=== PATIENT | female | born 1980 | race African-American/Black ===

== ENCOUNTER 2023-10-14 08:28 | Outpatient (CLI) | payer BC, SELFPAY ==
--- NOTE | ~2023-10-14 | US_ITS ---
EXAMINATION: US OB <=14 wk fetus w TV DATE: 10/14/2023 09:31 INDICATION: Amenorrhea TECHNIQUE: Real-time pelvic ultrasound utilizing both a transvaginal and transabdominal probe was pe rformed. The interpreting radiologist was not present for the study. COMPARISON: None. FINDINGS: The uterus measures 13.6 x 5.9 x 8.1 cm. There is an intrauterine gestational sac.There is a curvili near internal septation within the gestational sac consistent with an enlarged yolk sac measuring bridgett roximately 1.3 cm in diameter. No evident pole. The mean sac diameter measures 1.8 cm, which co rrelates with an estimated gestational age of 6 weeks and 5 days. The right ovary measures 3.7 x 2.0 x 2.1 cm. The left ovary measures 2.5 x 2.0 x 2.3 cm. Vascular fredy w with arterial waveforms identified at both ovaries on color Doppler. There is a minimal amount of a nechoic free fluid in the pelvis. IMPRESSION: 1. Single intrauterine gestational sac with mean sac diameter of 1.8 cm with 1.3 cm intramural yolk s ac but without a pole which is suspicious but not diagnostic for failure. Recommend f ollow-up with serial beta-hCG levels and repeat imaging as clinically indicated. 2. Gestational age by ultrasound based on mean sac diameter of 6 weeks 5 day(s) +/- 4 day(s) with ul trasound estimated date of delivery (YARI) of 06/03/2024. Reviewed, dictated and finalized at location A. IMPRESSION: 1. Single intrauterine gestational sac with mean sac diameter of 1.8 cm with 1. 3 cm intramural yolk sac but without a pole which is suspicious but not d iagnostic for failure. Recommend follow-up with serial beta-hCG level s and repeat imaging as clinically indicated. 2. Gestational age by ultrasound based on mean sac diameter of 6 weeks 5 day(s ) +/- 4 day(s) with ultrasound estimated date of delivery (YARI) of 06/03/2024.
== END 2023-10-14 08:29 | disposition home or self-care (01) ==
LOC: ANHIMG 08:31
PROVIDERS: PCP Family Medicine; Visit Provider Nurse Practitioner Obstetrics & Gynecology
DX: N91.2 Amenorrhea, unspecified (principal); Z3A.01 Less than 8 weeks gestation of pregnancy
CPT/HCPCS: 76801; 76817

== ENCOUNTER 2023-10-15 07:50 | Outpatient (CLI) | payer BC, SELFPAY ==
[2023-10-17 18:23] LABS: Progesterone 5.3 ng/mL
== END 2023-10-15 07:51 | disposition home or self-care (01) ==
LOC: ANHLAB 07:51
PROVIDERS: PCP Family Medicine; Visit Provider Nurse Practitioner Obstetrics & Gynecology
DX: N91.2 Amenorrhea, unspecified (principal)
CPT/HCPCS: 36415; 84144; 84702

== ENCOUNTER 2023-10-17 08:17 | Outpatient (CLI) | payer BC, SELFPAY ==
[2023-10-20 02:44] LABS: Progesterone 4.6 ng/mL
== END 2023-10-17 08:18 | disposition home or self-care (01) ==
LOC: ANHLAB 08:18
PROVIDERS: PCP Family Medicine; Visit Provider Nurse Practitioner Obstetrics & Gynecology
DX: N91.2 Amenorrhea, unspecified (principal)
CPT/HCPCS: 36415; 84144; 84702

== ENCOUNTER 2023-10-26 09:53 | Outpatient (CLI) | payer BC, SELFPAY ==
--- NOTE | ~2023-10-26 | US_ITS ---
Pelvic ultrasound. Clinical History: First trimester , inconclusive viability COMPARISON: 10/14/2023 Technique: Realtime transabdominal and transvaginal scanning of the pelvis was performed. Color flow Doppler and Doppler spectral analysis were performed. Findings: The uterus is retroverted, and contains an intrauterine gestational sac. Average sac diamet er of 2 cm corresponds to an estimated gestational age of 6 weeks 6 days. Sac is mildly irregular mor phology. There is probable minimal debris within the sac, but no pole or yolk sac clearly evide nt. Small subchorionic hemorrhage present. The right ovary measures 3.3 x 1.8 x 3.4 cm. No significant right ovarian or adnexal mass is seen. The left ovary measures 2.5 x 1.8 x 2.6 cm. No significant left ovarian or adnexal mass is seen. There is no evidence of free fluid in the cul de sac. Impression: Intrauterine gestational sac with estimated gestational age of 6 weeks 6 days by average sac diameter , however the sac is mildly irregular, with minimal debris and no well-formed pole or yolk sac. Findings are suspicious for blighted ovum/missed . Small subchorionic hemorrhage. Reviewed, dictated and finalized at location . Impression: Intrauterine gestational sac with estimated gestational age of 6 weeks 6 days b y average sac diameter, however the sac is mildly irregular, with minimal debri s and no well-formed pole or yolk sac. Findings are suspicious for blight ed ovum/missed . Small subchorionic hemorrhage.
== END 2023-10-26 09:54 | disposition home or self-care (01) ==
LOC: ANHIMG 09:55
PROVIDERS: PCP Family Medicine; Visit Provider Obstetrics & Gynecology
DX: O36.80X0 Pregnancy with inconclusive fetal viability, not applicable or unspecified (principal); Z3A.01 Less than 8 weeks gestation of pregnancy
CPT/HCPCS: 36415; 76801; 76817; 84702

== ENCOUNTER 2023-10-26 19:03 | Emergency (ER) | payer BC, SELFPAY ==
[2023-10-26 19:05] VITALS: BP 162/98; PULSE 98; RESP 16; TEMP 36.8; O2SAT 100
--- NOTE | 2023-10-26 20:11 | PC.NURSE ---
States has bleed through the sanitary napkin and onto blue chux pad under her. Additional supplies provided. Charge nurse notified of bleeding.
[2023-10-26 20:50] VITALS: BP 140/101; PULSE 92; RESP 20; O2SAT 100
[2023-10-26 21:45] LABS: Basophils Percent Auto 0.1 % (0.2-1.2); Eosinophils Absolute Auto 0.1 K/mm3 (0-0.3); Eosinophils Percent Auto 1.5 % (0-4.4); Hematocrit 34.5 % (37.0-47.0); Hemoglobin 11.4 g/dL (12.0-15.0); Immature Granulocyte Absolute 0.01 K/mm3 (0.00-0.031); Immature Granulocyte Percent A 0.1 % (0-0.5); Lymphocytes Absolute Auto 2.24 K/mm3 (0.9-3.2); Lymphocytes Percent Auto 27.6 % (18.3-44.2); Mean Corpuscular Hemoglobin 28.7 pg (26-34); Mean Corpuscular Volume 86.9 fl (80-100); Mean Platelet Volume 9.7 fl (7.4-10.4); Monocytes Absolute Auto 0.7 K/mm3 (0.1-0.6); Monocytes Percent Auto 8.6 % (2.6-8.5); Neutrophils Percent Auto 62.1 % (45.5-73.1); Platelet Count Result 197 k/mm3 (150-375); Red Blood Count 3.97 M/mm3 (4.2-5.4); White Blood Count 8.1 K/mm3 (4.5-10.0)
[2023-10-26 22:03] LABS: Alanine Aminotransferase 14 U/L (6-35); Alkaline Phosphatase 63 U/L (38-126); Anion Gap 11 mmol/L (4-12); Aspartate Amino Transferase 22 U/L (14-36); Bilirubin,Total 0.4 mg/dL (0.2-1.3); Blood Urea Nitrogen 8 mg/dL (7-17); Carbon Dioxide 22 mmol/L (22-30); Chloride 104 mmol/L (98-107); Estimated CRCL calculation 128 ml/min; Estimated Glomerular Filt Rate > 60; Glucose 103 mg/dL (65-110); Potassium 3.6 mmol/L (3.4-5.0); Sodium 137 mmol/L (137-145)
[2023-10-26] MEDS: KETOROLAC 15 MG/ML VIAL (*BKC) IV PUSH (22:12)
[2023-10-26] MEDS: HYDROmorphone HCL INJ (*CRX) 1 MG/ML SYR IV PUSH (22:12)
[2023-10-26 22:18] LABS: INR 1.1; Prothrombin Time 14.1 Seconds (11.1-14.7)
[2023-10-26 22:29] LABS: Partial Thromboplastin Time 22.9 Seconds (22.3-36.8)
[2023-10-26 22:31] VITALS: BP 122/92
[2023-10-26 22:46] VITALS: BP 129/78; PULSE 93; RESP 16; O2SAT 98
[2023-10-26 22:56] VITALS: BP 119/85; PULSE 97; RESP 17; O2SAT 99
[2023-10-26 23:01] VITALS: BP 135/80; PULSE 92; RESP 17; O2SAT 96
[2023-10-27 00:04] VITALS: BP 122/93; PULSE 98; RESP 17; TEMP 36.6; O2SAT 96
--- NOTE | 2023-10-27 01:25 | ED.GENADULT ---
HPI - General Adult General Chief complaint: Vaginal Bleeding Stated complaint: heavy vag bleeding s/p miscarriage Time Seen by Provider: 10/26/23 21:31 History of Present Illness HPI narrative: This is a 43-year-old female presenting with vaginal bleeding. Patient had a miscarriage noted on ultrasound on 10/13. The patient has not had vaginal bleeding. She had another ultrasound earlier today which showed that she had still not passed the products of conception. At 2:00 p.m. she started developed vaginal bleeding. She was soaking through more than 1 pad hour for several hours and then came to the ED for evaluation. This time the patient is experiencing crampy abdominal pain. No lightheadedness and headedness dizziness chest pain difficulty breathing. Related Data Home Medications Medication Instructions Recorded Confirmed metoprolol succinate 25 mg 25 mg PO DAILY 02/05/20 09/29/23 tablet,extended release 24 hr hydroxychloroquine 200 mg tablet 200 mg PO DAILY 02/09/21 09/29/23 Allergies Allergy/AdvReac Type Severity Reaction Status Date / Time adhesive tape Allergy Unknown Rash Verified 09/29/23 09:23 [facility] Past Medical History Medical History Hypertension Vaginal delivery x2 Surgical History Surgical History S/P bunionectomy Family History Family History Mother Hypertension Other Family history of malignant neoplasm of breast in first degree relative Social History Social History Smoking status: Never smoker Alcohol intake: current Lack of Transportation: No Lack of Food: Never True Current Housing: I Have Housing Concerned About Future Housing: No Difficulty Paying Gas/Electric Bills: No Difficulty Paying for Meds: No Currently Unemployed: No Education: Associate Degree Difficulty w/ Childcare or Family Care: No Living arrangements: with family Gender identity (if verbalized by the patient): Female Exam Narrative: APPEARANCE: No apparent distress. Head: atraumatic. EYES: EOMI, NOSE: Atraumatic NECK: Trachea midline RESPIRATORY: No increased rate of breathing CARDIOVASCULAR: RRR, ABDOMINAL: Nondistended, mildly tender in the suprapubic area exam: Vaginal bleeding with passage of clots MUSCULOSKELETAl: No obvious deformities NEURO: Alert. Moving 4/4 extremities SKIN:: Warm, dry. Normal color PSYCHIATRIC: Normal affect Course Vital Signs Vital signs: Vital Signs Temperature 98.3 F 10/26/23 19:05 Pulse Rate 98 10/26/23 19:05 Respiratory Rate 16 10/26/23 19:05 Blood Pressure 162/98 H 10/26/23 19:05 Pulse Oximetry 100 10/26/23 19:05 Oxygen Delivery Room Air 10/26/23 19:05 Temperature 97.8 F 10/27/23 00:04 Pulse Rate 80 10/27/23 02:07 Respiratory Rate 17 10/27/23 02:07 Blood Pressure 128/91 H 10/27/23 02:07 Pulse Oximetry 99 10/27/23 02:07 Oxygen Delivery Room Air 10/26/23 19:05 Medical Decision Making MDM Narrative Medical decision making narrative: -Course: 43-year-old female presenting with miscarriage. Patient is having significant vaginal bleeding. Pelvic exam she had products of conception stuck in the cervical os. These were removed using ring forceps and the rest of the clots and blood were evacuated. The cervical os is now closed. Patient was monitored for 4 hours and her bleeding has essentially resolved. Her hemoglobins dropped by 1 point but her vital signs are stable and she is feeling better. Patient be discharged to follow-up with her OBGYN tomorrow morning for further management. -DDX includes but is not limited to: Miscarriage, missed Madan miscarriage, septic miscarriage -Independent interpretation of studies: Labs reviewed Ultrasound reviewed -Discussion of Michael
[2023-10-27] MEDS: ONDANSETRON INJ 4 MG/2 ML VIAL IV PUSH (01:57)
[2023-10-27 02:07] VITALS: BP 128/91; PULSE 80; RESP 17; O2SAT 99
[2023-10-27 02:13] LABS: Hematocrit 32.7 % (37.0-47.0); Hemoglobin 10.5 g/dL (12.0-15.0)
--- NOTE | 2023-10-27 04:07 | PC.NURSE ---
product of conception walked to lab by this rn w demise paperwork.
== END 2023-10-27 04:07 | disposition home or self-care (01) ==
PROVIDERS: Registered Nurse; Emergency Provider Emergency Medicine; PCP Family Medicine
DX: O03.9 Complete or unspecified spontaneous abortion without complication (principal)
CPT/HCPCS: 36415; 76801; 76817; 80053; 84702; 85014; 85018; 85025; 85610; 85730; 88305; 96374; 96375; 99284; J1170; J1885; J2405

== ENCOUNTER 2023-11-01 14:56 | Observation (INO) | payer BC, SELFPAY ==
[2023-11-01] VITALS (10 sets, daily range): BP systolic 129–153; BP diastolic 81–95; PULSE 75–107; RESP 14–18; TEMP 36.3–36.6; O2SAT 98–100
--- NOTE | 2023-11-01 15:39 | ED.FEMALEGU ---
HPI - Female Genitourinary General Chief complaint: Vaginal Bleeding Stated complaint: vaginal bleeding Time Seen by Provider: 11/01/23 15:06 Source: patient and other (Dr Livingston) Limitations: no limitations History of Present Illness HPI Narrative: Patient presents via Dr Livingston's office who calls ahead notifying ED that patient is having a miscarriage and will require a D&C in the OR. Dr Livingston had tried to arrnage outpatient to directly transfer to the OR but was met with logistical difficulties. Requesting IV and CBC. Patient does endorse some pain. Has been having vaginal bleeding. Related Data Home Medications Medication Instructions Recorded Confirmed metoprolol succinate 25 mg 25 mg PO DAILY 02/05/20 11/01/23 tablet,extended release 24 hr hydroxychloroquine 200 mg tablet 200 mg PO DAILY 02/09/21 11/01/23 Allergies Allergy/AdvReac Type Severity Reaction Status Date / Time adhesive tape Allergy Unknown Rash Verified 11/01/23 15:57 PMFSH Past Medical History Medical History Hypertension Vaginal delivery x2 Surgical History Surgical History S/P bunionectomy Family History Family History Mother Hypertension Other Family history of malignant neoplasm of breast in first degree relative Social History Social History Smoking status: Never smoker Alcohol intake: current Substance use: never Other substance usage details: Occasional alcohol Do You Feel Safe in your Home?: Yes Lack of Transportation: No Lack of Food: Never True Current Housing: I Have Housing Concerned About Future Housing: No Difficulty Paying Gas/Electric Bills: No Difficulty Paying for Meds: No Currently Unemployed: No Education: Associate Degree Difficulty w/ Childcare or Family Care: No Living arrangements: with family Gender identity (if verbalized by the patient): Female Spiritual care concerns: No Exam Narrative: GENERAL: Well-appearing, well-nourished, and in no acute distress. HEAD: Normocephalic, atraumatic. EYES: Non injected, non icteric ENT: Nares clear, no rhinorrhea or epistaxis. NECK: Supple. CHEST: Speaking in full sentences. No respiratory distress. HEART: Regular rate and rhythm. . ABDOMEN: Soft, nondistended. EXTREMITIES: Normal range of motion. No lower extremity edema. SKIN: Warm, dry, no rash. NEURO: No focal deficits. Alert and oriented x3. PSYCH: Normal mood and affect. Course Vital Signs Vital signs: Vital Signs Temperature 97.6 F 11/01/23 15:09 Pulse Rate 98 11/01/23 15:09 Respiratory Rate 15 11/01/23 15:09 Blood Pressure 153/92 H 11/01/23 15:09 Pulse Oximetry 100 11/01/23 15:09 Oxygen Delivery Room Air 11/01/23 15:09 Temperature 98.1 F 11/02/23 05:56 Pulse Rate 78 11/02/23 05:56 Respiratory Rate 16 11/02/23 05:56 Blood Pressure 113/60 11/02/23 05:56 Pulse Oximetry 98 11/02/23 05:56 Oxygen Delivery Room Air 11/01/23 20:00 Oxygen Flow Rate 8 11/01/23 16:55 MDM - Female Genitourinary MDM Narrative Medical decision making narrative: Patient presents from Dr Livingston's office. She is having a miscarriage and will require D&C for vaginal bleeding. In the ED she is afebril with VS notable for hypertension. Labs drawn but not yet resulted as she is taken to the OR in stable condition. Patient has a normocytic anemia, down from 10.5 previously on 10/27/23. Lab Data Attestation: I reviewed the patient's lab results. 11/02/23 05:12 11/01/23 15:25 Labs: Lab Results 11/01/23 Range/Units 15:25 WBC 8.0 (4.5-10.0) K/mm3 RBC 2.88 L (4.2-5.4) M/mm3 Hgb 8.2 L (12.0-15.0) g/dL Hct 25.6 L (37.0-47.0) % MCV 88.9 (80-100) fl MCH 28.5 (26-3
[2023-11-01 15:40] LABS: Basophils Percent Auto 0.3 % (0.2-1.2); Eosinophils Absolute Auto 0.1 K/mm3 (0-0.3); Eosinophils Percent Auto 1.4 % (0-4.4); Hematocrit 25.6 % (37.0-47.0); Hemoglobin 8.2 g/dL (12.0-15.0); Immature Granulocyte Absolute 0.03 K/mm3 (0.00-0.031); Immature Granulocyte Percent A 0.4 % (0-0.5); Lymphocytes Absolute Auto 2.43 K/mm3 (0.9-3.2); Lymphocytes Percent Auto 30.5 % (18.3-44.2); Mean Corpuscular Hemoglobin 28.5 pg (26-34); Mean Corpuscular Volume 88.9 fl (80-100); Mean Platelet Volume 9.5 fl (7.4-10.4); Monocytes Absolute Auto 0.6 K/mm3 (0.1-0.6); Monocytes Percent Auto 7.8 % (2.6-8.5); Neutrophils Absolute Auto 4.8 K/mm3 (1.3-6.7); Neutrophils Percent Auto 59.6 % (45.5-73.1); Platelet Count Result 222 k/mm3 (150-375); Red Blood Count 2.88 M/mm3 (4.2-5.4); Red Cell Distribution Width 18.6 % (11.5-14.5)
[2023-11-01 15:43] LABS: Prothrombin Time 13.8 Seconds (11.1-14.7)
[2023-11-01 15:44] LABS: Partial Thromboplastin Time 25.2 Seconds (22.3-36.8)
[2023-11-01 15:48] LABS: Alanine Aminotransferase 17 U/L (6-35); Albumin Level 3.9 g/dL (3.5-5.1); Alkaline Phosphatase 63 U/L (38-126); Anion Gap 9 mmol/L (4-12); Aspartate Amino Transferase 26 U/L (14-36); Bilirubin,Total 0.2 mg/dL (0.2-1.3); Blood Urea Nitrogen 8 mg/dL (7-17); Calcium 8.7 mg/dL (8.4-10.2); Carbon Dioxide 22 mmol/L (22-30); Chloride 104 mmol/L (98-107); Estimated CRCL calculation 111 ml/min; Estimated Glomerular Filt Rate > 60; Glucose 110 mg/dL (65-110); Sodium 135 mmol/L (137-145)
--- NOTE | 2023-11-01 15:51 | WPDANESEPPF ---
Anes - Initial Pre Proc Eval Procedure: Operation Date: 11/01/23 16:00 Proposed Procedures p Suction Dilatation and Curettage - Naveen Simmons MD Date/Time: 11/01/23 15:51 Surgeon: Naveen Simmons MD Pre Op Diagnosis: vaginal bleeding Patient Data Age: 43 Gender: F Height: 1.68 m Weight: 104.7 kg Last Vital Signs Temp 36.4 C 11/01/23 15:09 Pulse 98 11/01/23 15:09 Resp 15 11/01/23 15:09 BP 153/92 H 11/01/23 15:09 Pulse Ox 100 11/01/23 15:09 O2 Del Method Room Air 11/01/23 15:09 Allergies Allergy/AdvReac Type Severity Reaction Status Date / Time adhesive tape Allergy Unknown Rash Verified 11/01/23 14:56 Home Medications Medication Instructions Recorded Confirmed Type metoprolol succinate 25 mg 25 mg PO DAILY 02/05/20 09/29/23 History tablet,extended release 24 hr hydroxychloroquine 200 mg tablet 200 mg PO DAILY 02/09/21 09/29/23 History hydrocodone 5 mg-acetaminophen 325 1 tablet PO Q4H PRN pain #7 tabs 10/27/23 Rx mg tablet misoprostol 200 mcg tablet 200 mcg vaginal .COMPLEX #3 tabs 10/27/23 Rx (Cytotec) ondansetron 4 mg disintegrating 4 mg PO Q6H PRN nausea and 10/27/23 Rx tablet vomiting #4 tabs Laboratory Tests 11/01/23 15:25 WBC 8.0 K/mm3 (4.5-10.0) RBC 2.88 L M/mm3 (4.2-5.4) Hgb 8.2 L g/dL (12.0-15.0) Hct 25.6 L % (37.0-47.0) MCV 88.9 fl (80-100) MCH 28.5 pg (26-34) MCHC 32.0 g/dl (32-36) RDW 18.6 H % (11.5-14.5) Plt Count 222 k/mm3 (150-375) MPV 9.5 fl (7.4-10.4) Immature Gran % (Auto) 0.4 % (0-0.5) Neut % (Auto) 59.6 % (45.5-73.1) Lymph % (Auto) 30.5 % (18.3-44.2) Tompkins % (Auto) 7.8 % (2.6-8.5) Eos % (Auto) 1.4 % (0-4.4) Baso % (Auto) 0.3 % (0.2-1.2) Lymph # (Auto) 2.43 K/mm3 (0.9-3.2) Tompkins # (Auto) 0.6 K/mm3 (0.1-0.6) Eos # (Auto) 0.1 K/mm3 (0-0.3) Baso # (Auto) 0.0 K/mm3 (0.0-0.1) Abs Immat Gran (auto) 0.03 K/mm3 (0.00-0.031) Absolute Neuts (auto) 4.8 K/mm3 (1.3-6.7) Absolute Nucleated RBC 0.000 K/mm3 (0.0-0.012) Nucleated RBC % 0.0 % (0.0-0.2) PT 13.8 Seconds (11.1-14.7) INR 1.0 APTT 25.2 Seconds (22.3-36.8) Sodium 135 L mmol/L (137-145) Potassium 4.0 mmol/L (3.4-5.0) Chloride 104 mmol/L (98-107) Carbon Dioxide 22 mmol/L (22-30) Anion Gap 9 mmol/L (4-12) BUN 8 mg/dL (7-17) Creatinine 0.70 mg/dL (0.7-1.0) Estim Creat Clear Calc 111 ml/min Estimated GFR > 60 (59 - ) Glucose 110 mg/dL (65-110) Calcium 8.7 mg/dL (8.4-10.2) Total Bilirubin 0.2 mg/dL (0.2-1.3) AST 26 U/L (14-36) ALT 17 U/L (6-35) Alkaline Phosphatase 63 U/L (38-126) Total Protein 7.0 g/dL (6.3-8.2) Albumin 3.9 g/dL (3.5-5.1) Patient hx anesthesia problems: post op nausea/vomiting Family hx anesthesia problems: none Results Review: All pre-operative results and documents have been reviewed as part of the pre-operative evaluation. [facility] Past Medical History Medical History Hypertension Vaginal delivery x2 Surgical History Surgical History S/P bunionectomy Family History Family History Mother Hypertension Other Family history of malignant neoplasm of breast in first degree relative Social History Social History Smoking status: Never smoker Alcohol intake: current Lack of Transportation: No Lack of Food: Never True Current Housing: I Have Housing Concerned About Future Housing: No Difficulty Paying Gas/Electric Bills: No Difficulty Paying for Meds: No Currently Unemployed: No Education: Associate Degree Difficulty w/ Childcare or Family Care: No Kanika
[2023-11-01] MEDS: LACTATED RINGERS 1,000 ML 30 ML IV CONT (15:58)
[2023-11-01] MEDS: SCOPOLAMINE 1 MG PATCH 1 PATCH TRANSDERM (16:02)
--- NOTE | 2023-11-01 16:10 | PM.IMHP ---
H&P: HPI History of Present Illness Date/Time: 11/01/23 16:10 Chief Complaint: Bleeding Narrative: Patient with incomplete miscarriage. She took misoprostol this weekend and has had heavy bleeding. In the office tissue at os and heavy bleeding. She was recommended for a dilation and curettage. Review of Systems Review of Systems: All systems reviewed & are unremarkable except as noted in HPI and below Cardiovascular: Cardiovascular: Reports no additional cardiovascular complaints, Denies chest pain and Denies dyspnea Respiratory: Respiratory: Reports no additional respiratory complaints and Denies dyspnea Gastrointestinal: Gastrointestinal: Reports abdominal pain, Denies change in bowel habits, Denies diarrhea, Denies nausea and Denies vomiting Genitourinary: Genitourinary: Reports pelvic pain Musculoskeletal: Musculoskeletal: Reports back pain Integumentary/Breasts: Skin/Breast: Reports system reviewed and no additional complaints, except as docu Neurologic: Reports system reviewed and no additional complaints, except as documented PMF Past Medical History Medical History Hypertension Vaginal delivery x2 Surgical History Surgical History S/P bunionectomy Family History Family History Mother Hypertension Other Family history of malignant neoplasm of breast in first degree relative Social History Social History Smoking status: Never smoker Alcohol intake: current Lack of Transportation: No Lack of Food: Never True Current Housing: I Have Housing Concerned About Future Housing: No Difficulty Paying Gas/Electric Bills: No Difficulty Paying for Meds: No Currently Unemployed: No Education: Associate Degree Difficulty w/ Childcare or Family Care: No Living arrangements: with family Gender identity (if verbalized by the patient): Female Meds Home Medications and Allergies Home Medications Medication Instructions Recorded Confirmed Type metoprolol succinate 25 mg 25 mg PO DAILY 02/05/20 11/01/23 History tablet,extended release 24 hr hydroxychloroquine 200 mg tablet 200 mg PO DAILY 02/09/21 11/01/23 History hydrocodone 5 mg-acetaminophen 325 1 tablet PO Q4H PRN pain #7 tabs 10/27/23 11/01/23 Rx mg tablet misoprostol 200 mcg tablet 200 mcg vaginal .COMPLEX #3 tabs 10/27/23 11/01/23 Rx (Cytotec) ondansetron 4 mg disintegrating 4 mg PO Q6H PRN nausea and 10/27/23 11/01/23 Rx tablet vomiting #4 tabs Allergies Allergy/AdvReac Type Severity Reaction Status Date / Time adhesive tape Allergy Unknown Rash Verified 11/01/23 15:57 Vital Signs Vital Signs - 24 hr 11/01/23 15:09 Temperature 97.6 F Pulse Rate 98 Respiratory Rate 15 Blood Pressure 153/92 H Pulse Oximetry 100 Oxygen Delivery Room Air Exam Const: Orientation/consciousness: oriented to person and oriented to place HENMT: Head: normal to inspection Eyes: General: appearance normal, both eyes and all related structures Resp: Effort & Inspection: normal respiratory effort Auscultation: clear to auscultation bilaterally Cardio: Rate: regular rate Rhythm: regular rhythm GI: Inspection: normal to inspection GI Palp: No Rebound tenderness present Neuro: General: oriented to person and oriented to place Cognition (Neuro): normal cognition Extrem: General: normal to inspection Psych: Appearance: grossly normal and well kempt H&P: Results Labs Labs: Short CBC 11/01/23 Range/Units 15:25 WBC 8.0 (4.5-10.0) K/mm3 Hgb 8.2 L (12.0-15.0) g/dL Hct 25.6 L (37.0-47.0) % Plt Count 222 (150-375) k/mm3 BMP 11/01/23 15:25 Sodium 135 L Potassium 4.0 Chloride 104 Carbon Dioxide 22 BUN 8 Creatinine 0.70 Glucose 110 Calcium
--- NOTE | 2023-11-01 16:12 | WPDHPUPDATE1 ---
History and Physical Update Update Date/Time: 11/01/23 16:12 History and Physical has been reviewed, including an updated exam of the patient. There are NO changes in the patient's condition. Risks, benefits, and alternatives have been discussed and questions answered. Patient agrees to proceed with procedure.
[2023-11-01] MEDS: ceFAZolin SODIUM 1 GM VIAL 2 GM IV PUSH (16:22)
--- NOTE | 2023-11-01 17:09 | PM.OP ---
Procedure Note - Brief Procedure Note - Brief Date of procedure: 11/01/23 incomplete miscarriage Post-op diagnosis: Same Surgeon: Naveen Simmons MD Anesthesia: GETA Findings: Large amount of tissue at os, cervix dilated to 2cm Estimated blood loss (mL): 50 Drains: No Packing: No Pathology: Yes (products of conception) Complications: No immediate complications Condition: Stable Disposition: PACU
[2023-11-01] MEDS: ONDANSETRON INJ 4 MG/2 ML VIAL IV PUSH ×2 (17:16→20:58)
--- NOTE | 2023-11-01 18:00 | ADMGEN ---
This patient, Jeannine Aragon, was admitted to Medical Room 349-01. Patient/family oriented to hospital policies and general routines including ID bracelet, bed and alarms, visiting hours, pain management, procedures, bathroom and other care routines, personal items, smoking policy, room service/diet, and visiting hours. Information on how to activate the Rapid Response Team has been discussed. Patient/Family are encouraged to report perceived risks to care and to ask questions if they do not understand what they are told or what they should do.
[2023-11-01] MEDS: HYDROcodone/acetaminophen (*CRX) 10-325 MG TABLET 1 TAB PO ×2 (19:37→23:34)
[2023-11-01] MEDS: CLINDAMYCIN 900 MG/D5W 50 ML 900 MG/50 ML PIGGYBACK 50 MG IVPB (20:08)
[2023-11-01] MEDS: IRON SUCROSE COMPLEX 400 MG in SODIUM CHLORIDE 0.9% IV 250 ML 108 MG IVPB (21:00)
--- NOTE | 2023-11-01 23:13 | P.OP_ITS ---
Procedure Note - Detailed Date of Procedure 11/01/23 Pre-op Diagnosis Incomplete miscarriage Post-op Diagnosis Same Procedure Performed Suction curettage Surgeon Navene Simmons MD Anesthesia General Indications Incomplete miscarriage, active bleeding Findings Large amount of tissue at os and lower uterine segment Description of Procedure After informed consent was obtained, she was taken to OR. General endotracheal anesthesia was administered. She was placed in high lithotomy position and prepped and draped in sterilie fashion. Speculum inserted. Ring forcep placed on anterior lip of cervix. Tissue was vi sually dilated with tissue at os to at least a 2cm. The tissue was grasped with ring forceps and most of obained and suctioned up. A size 14 suction was passed into uterus, minimal tissue obtained. The cavity was sharply curetted and good cry noted in all quadrants. Suctioned passed and minimal tissue. Hemostasis noted at os. Sponge count correct. She was extubated in OR and taken to recovery in stable condition. Estimated Blood Loss 50 Drains No Packing No Pathology Yes (products of conception) Complications No immediate complications Condition Stable Disposition PACU [facility] Billing Surgery - Charge Forward: Surgery Billing
[2023-11-02] VITALS (10 sets, daily range): BP systolic 113–143; BP diastolic 60–76; PULSE 78–100; RESP 16–20; TEMP 36.6–37; O2SAT 91–100
[2023-11-02] MEDS: CLINDAMYCIN 900 MG/D5W 50 ML 900 MG/50 ML PIGGYBACK 50 MG IVPB (02:44)
[2023-11-02 05:32] LABS: Hematocrit 23.8 % (37.0-47.0); Hemoglobin 7.5 g/dL (12.0-15.0); Mean Corpuscular HGB Conc 31.5 g/dl (32-36); Mean Corpuscular Hemoglobin 28.1 pg (26-34); Mean Corpuscular Volume 89.1 fl (80-100); Mean Platelet Volume 9.2 fl (7.4-10.4); Platelet Count Result 224 k/mm3 (150-375); Red Blood Count 2.67 M/mm3 (4.2-5.4); Red Cell Distribution Width 18.6 % (11.5-14.5); White Blood Count 9.7 K/mm3 (4.5-10.0)
[2023-11-02] MEDS: SIMETHICONE 80 MG TAB.CHEW PO ×3 (09:30→17:04)
[2023-11-02] MEDS: METOPROLOL SUCCINATE EXT REL 25 MG TABCR PO (09:30)
[2023-11-02] MEDS: HYDROcodone/acetaminophen (*CRX) 10-325 MG TABLET 1 TAB PO (09:35)
--- NOTE | 2023-11-02 10:28 | PM.GYNPNOP ---
CARDIO CLINICIAN - A/P Assessment and plan (1) Status post D&C: Code(s): Z98.890 - Other specified postprocedural states Status: Acute Assessment and Plan: POD1. Discussed her procedure with her. Questions answered. Pain improved with medication. DC IV antibiotics and start oral Doxycycline. (2) Symptomatic anemia: Code(s): D64.9 - Anemia, unspecified Status: Acute Assessment and Plan: No active bleeding. H/H from 10/31 was most likely higher due to hemoconcentration. Will give 2uprbc. Recheck in am. Postoperative Procedures: Procedures Operation Date: 11/01/23 16:00 Actual Procedure Side Surgeon p Suction Dilatation and Curettage Not Applicable Naveen Simmons MD Time Spent With Patient Time: Total time spent is greater than 50% in coordination of care (as documented) at patient's floor/unit and/or counseling patient: Time with patient: less than 15 minutes CARDIO CLINICIAN- PN:Subj Post-Op Subjective Date/time seen: 11/02/23 10:28 Interval history: She states she feels lightheaded with ambulation. Minimal bleeding. Cramping improved with medication. Review of Systems Constitutional: Constitutional: Reports as per HPI Respiratory: Respiratory: Reports no additional respiratory complaints Gastrointestinal: Gastrointestinal: Reports no additional gastrointestinal complaints Genitourinary: Genitourinary: Reports no additional female genitourinary complaints Hematologic/Lymphatic: Hematologic/Lymphatic: Reports as per HPI Exam Const: General: no acute distress Eyes: General: appearance normal, both eyes and all related structures Resp: Effort & Inspection: normal respiratory effort GI: Other: nontender CARDIO CLINICIAN - PN: Obj Data Vital Signs Vital Signs: Vital Signs - 24 hr 11/01/23 15:09 11/01/23 15:40 11/01/23 16:44 Temperature 97.6 F 97.4 F L 97.3 F L Pulse Rate 98 93 107 H Respiratory Rate 15 18 14 Blood Pressure 153/92 H 153/87 H 138/94 H Pulse Oximetry 100 100 100 Oxygen Delivery Room Air Room Air Simple Face Mask Oxygen Flow Rate 8 11/01/23 16:55 11/01/23 17:10 11/01/23 17:25 Temperature Pulse Rate 97 93 85 Respiratory Rate 16 14 14 Blood Pressure 142/91 H 147/89 H 144/93 H Pulse Oximetry 100 99 100 Oxygen Delivery Simple Face Mask Room Air Room Air Oxygen Flow Rate 8 11/01/23 17:40 11/01/23 18:15 11/01/23 19:25 Temperature 97.5 F L 97.8 F 97.7 F Pulse Rate 93 75 80 Respiratory Rate 17 16 18 Blood Pressure 144/94 H 144/95 H 138/81 Pulse Oximetry 100 100 100 Oxygen Delivery Room Air Oxygen Flow Rate 11/01/23 20:00 11/01/23 23:34 11/02/23 05:56 Temperature 98 F 98.1 F Pulse Rate 77 78 Respiratory Rate 16 16 Blood Pressure 129/81 113/60 Pulse Oximetry 98 98 Oxygen Delivery Room Air Oxygen Flow Rate Intake/Output Intake/Output: Intake & Output 10/30/23 10/31/23 11/01/23 11/02/23 23:59 23:59 23:59 23:59 Intake Total 620 50 Balance 620 50 Meds/Results Medications: Active Medications Generic Name Dose Route Start Last Admin Trade Name Freq PRN Reason Stop Dose Admin Hydrocodone Bitart/Acetaminophen 1 tab 11/01/23 17:04 Hydrocodone/Acetaminophen (*Crx) 5-325 Mg Tablet PO Q3H PRN Pain Rated 5 or Less Hydrocodone Bitart/Acetaminophen 1 tab 11/01/23 17:04 11/02/23 09:35 Hydrocodone/Acetaminophen (*Crx) 10-325 Mg Tablet PO 1 tab Q3H PRN Administration Pain Rated 6 or Greater Doxycycline Hyclate 100 mg 11/02/23 21:00 Doxycycline Hyclate 100 Mg Tablet PO Q12HR JOSÉ MIGUEL Lactated Ringer's 1,000 mls @ 30 mls/hr 11/01/23 15:55 11/01/23 17:40 Lr - Lactated Ringers Iv IV CONT Infused .Q24H JOSÉ MIGUEL Infusion Sodium Chloride 250 mls @ 30 mls/hr 11/02/23 09:41 Normal Saline Iv IV CONT 11/02/23 18:00 .Q8H20M STA Ibuprofen 600 mg 11/01/23 17:04 Ibuprofen 600 Mg Tablet PO Q6H PRN Cramping Ketorolac Tromethamine 30 mg 11/01/23 17:04
[2023-11-02] MEDS: SODIUM CHLORIDE 0.9% IV 250 ML 30 ML IV CONT (10:41)
[2023-11-02] MEDS: diphenhydrAMINE HCl INJ 50 MG/ML VIAL IV PUSH ×2 (13:22→21:18)
--- NOTE | 2023-11-02 13:25 | WPDANESPN ---
Anes - Prog Note Post-Op Date/Time: 11/02/23 13:25 Cardiovascular status: normal Respiratory status: normal Airway patency: baseline Mental status: baseline Post-Op hydration status: normal Vital Signs: Last Vital Signs Temp 36.9 C 11/02/23 11:16 Pulse 85 11/02/23 11:16 Resp 18 11/02/23 11:16 BP 121/71 11/02/23 11:16 Pulse Ox 98 11/02/23 11:16 O2 Del Method Room Air 11/01/23 20:00 O2 Flow Rate 8 11/01/23 16:55 Pain Score (VAS): 04/02 I/O: Intake & Output 11/01/23 11/02/23 11/02/23 23:59 07:59 15:59 Intake Total 620 50 0 Balance 620 50 0 Laboratory Tests 11/02/23 05:12 11/01/23 15:25 11/01/23 11/02/23 15:25 05:12 WBC 8.0 9.7 RBC 2.88 L 2.67 L Hgb 8.2 L 7.5 L Hct 25.6 L 23.8 L MCV 88.9 89.1 MCH 28.5 28.1 MCHC 32.0 31.5 L RDW 18.6 H 18.6 H Plt Count 222 224 MPV 9.5 9.2 Immature Gran % (Auto) 0.4 Neut % (Auto) 59.6 Lymph % (Auto) 30.5 Wilcox % (Auto) 7.8 Eos % (Auto) 1.4 Baso % (Auto) 0.3 Lymph # (Auto) 2.43 Wilcox # (Auto) 0.6 Eos # (Auto) 0.1 Baso # (Auto) 0.0 Abs Immat Gran (auto) 0.03 Absolute Neuts (auto) 4.8 Absolute Nucleated RBC 0.000 Nucleated RBC % 0.0 PT 13.8 INR 1.0 APTT 25.2 Sodium 135 L Potassium 4.0 Chloride 104 Carbon Dioxide 22 Anion Gap 9 BUN 8 Creatinine 0.70 Estim Creat Clear Calc 111 Estimated GFR > 60 Glucose 110 Calcium 8.7 Total Bilirubin 0.2 AST 26 ALT 17 Alkaline Phosphatase 63 Total Protein 7.0 Albumin 3.9 Blood Type O Positive Antibody Screen Negative Screen Not Reportable Baby's Blood Type Not Reportable Baby's TAWNY Not Reportable Doses of RhIg Required 0 Crossmatch See Detail Post-procedural complaints: none Patient Feedback: Patient satisfied with anesthetic care. Other Findings: pt c/o itching all over, nurse notified, possible side effect of blood transfusion, Dr krueger being notified
[2023-11-02] MEDS: SODIUM CHLORIDE 0.9% IV 250 ML 30 ML (15:50)
[2023-11-02] MEDS: DOXYCYCLINE HYCLATE 100 MG TABLET PO (21:09)
[2023-11-02] MEDS: HYDROcodone/acetaminophen (*CRX) 5-325 MG TABLET 1 TAB PO (21:16)
[2023-11-03 05:45] LABS: Hematocrit 26.5 % (37.0-47.0); Hemoglobin 8.5 g/dL (12.0-15.0); Mean Corpuscular HGB Conc 32.1 g/dl (32-36); Mean Corpuscular Hemoglobin 28.7 pg (26-34); Mean Corpuscular Volume 89.5 fl (80-100); Mean Platelet Volume 9.2 fl (7.4-10.4); Platelet Count Result 205 k/mm3 (150-375); Red Blood Count 2.96 M/mm3 (4.2-5.4); Red Cell Distribution Width 18.6 % (11.5-14.5); White Blood Count 11.7 K/mm3 (4.5-10.0)
[2023-11-03] MEDS: HYDROcodone/acetaminophen (*CRX) 5-325 MG TABLET 1 TAB PO (06:07)
[2023-11-03 07:12] VITALS: BP 125/71; PULSE 86; RESP 20; TEMP 36.4; O2SAT 98
[2023-11-03 08:00] VITALS: BP 117/81; PULSE 83; RESP 18; TEMP 36.6; O2SAT 100
[2023-11-03 08:08] VITALS: PULSE 86
[2023-11-03] MEDS: METOPROLOL SUCCINATE EXT REL 25 MG TABCR PO (08:08)
[2023-11-03] MEDS: DOXYCYCLINE HYCLATE 100 MG TABLET PO (08:08)
[2023-11-03] MEDS: SIMETHICONE 80 MG TAB.CHEW PO (08:08)
[2023-11-03] MEDS: MECLIZINE HCL 25 MG TABLET PO (09:38)
[2023-11-03] MEDS: PHENOL/SOD PHENO SPRAY CHERRY (*BKC) 1 SPRAY MUCOUS MEM (09:38)
--- NOTE | 2023-11-03 10:26 | PM.GYNPNOP ---
CLAM SHUCKING MACHINE TENDER - A/P Assessment and plan (1) Status post D&C: Code(s): Z98.890 - Other specified postprocedural states Status: Acute Assessment and Plan: POD2. Minimal bleeding. Doing well. Continue oral antibiotics. (2) Anemia: Code(s): D64.9 - Anemia, unspecified Status: Acute Assessment and Plan: Improving h/h. She has symptoms that are more consistent with Vertigo. Will give Meclizine and see how she feels. If improved then anticipate dischare today. Oral iron therapy. Postoperative Procedures: Procedures Operation Date: 11/01/23 16:00 Actual Procedure Side Surgeon p Suction Dilatation and Curettage Not Applicable Naveen Simmons MD Time Spent With Patient Time: Total time spent is greater than 50% in coordination of care (as documented) at patient's floor/unit and/or counseling patient: Time with patient: 15 - 25 minutes CLAM SHUCKING MACHINE TENDER- PN:Subj Post-Op Subjective Date/time seen: 11/03/23 0835 Interval history: She states she feels much better today. She denies cramping or leg pain. She has walked in room and sat in chair. She c/o throat irritation and has vertigo symptoms. Review of Systems Constitutional: Constitutional: Reports as per HPI Respiratory: Respiratory: Reports no additional respiratory complaints Gastrointestinal: Gastrointestinal: Reports no additional gastrointestinal complaints Genitourinary: Genitourinary: Reports no additional female genitourinary complaints Hematologic/Lymphatic: Hematologic/Lymphatic: Reports as per HPI Exam Const: General: no acute distress Eyes: General: appearance normal, both eyes and all related structures Resp: Effort & Inspection: normal respiratory effort GI: Other: nontender Extrem: General: no calf tenderness CLAM SHUCKING MACHINE TENDER - PN: Obj Data Vital Signs Vital Signs: Vital Signs - 24 hr 11/02/23 11:01 11/02/23 11:16 11/02/23 12:16 Temperature 98.2 F 98.5 F 98.1 F Pulse Rate 99 85 89 Respiratory Rate 18 18 20 Blood Pressure 113/63 121/71 116/65 Pulse Oximetry 94 98 100 Oxygen Delivery 11/02/23 14:14 11/02/23 15:29 11/02/23 15:44 Temperature 98.3 F 98.3 F 98.6 F Pulse Rate 100 97 91 Respiratory Rate 18 16 18 Blood Pressure 131/76 119/65 123/62 Pulse Oximetry 98 97 91 Oxygen Delivery 11/02/23 18:10 11/02/23 21:50 11/02/23 20:00 Temperature 98.5 F 97.9 F Pulse Rate 88 99 99 Respiratory Rate 18 20 20 Blood Pressure 139/69 143/75 H Pulse Oximetry 98 98 98 Oxygen Delivery Room Air 11/03/23 07:12 11/03/23 08:08 Temperature 97.5 F L Pulse Rate 86 86 Respiratory Rate 20 Blood Pressure 125/71 Pulse Oximetry 98 Oxygen Delivery Intake/Output Intake/Output: Intake & Output 10/31/23 11/01/23 11/02/23 11/03/23 23:59 23:59 23:59 23:59 Intake Total 620 2263 400 Output Total 1 Balance 620 2262 400 Meds/Results Medications: Active Medications Generic Name Dose Route Start Last Admin Trade Name Freq PRN Reason Stop Dose Admin Hydrocodone Bitart/Acetaminophen 1 tab 11/01/23 17:04 11/03/23 06:07 Hydrocodone/Acetaminophen (*Crx) 5-325 Mg Tablet PO 1 tab Q3H PRN Administration Pain Rated 5 or Less Hydrocodone Bitart/Acetaminophen 1 tab 11/01/23 17:04 11/02/23 09:35 Hydrocodone/Acetaminophen (*Crx) 10-325 Mg Tablet PO 1 tab Q3H PRN Administration Pain Rated 6 or Greater Diphenhydramine HCl 50 mg 11/02/23 13:16 11/02/23 21:18 Diphenhydramine Hcl Inj 50 Mg/Ml Vial IV PUSH 50 mg Q6HR PRN Administration Itching Doxycycline Hyclate 100 mg 11/02/23 21:00 11/03/23 08:08 Doxycycline Hyclate 100 Mg Tablet PO 100 mg Q12HR JOSÉ MIGUEL Administration Lactated Ringer's 1,000 mls @ 30 mls/hr 11/01/23 15:55 11/02/23 17:07 Lr - Lactated Ringers Iv IV CONT Not Given .Q24H JOSÉ MIGUEL Ibuprofen 600 mg 11/01/23 17:04 Ibuprofen 600 Mg Tablet PO Q6H PRN Cramping Ketorolac Tromethamine 30 mg 11/01/23 17:04 Ketorol
--- NOTE | 2023-11-03 12:48 | PM.DS ---
DS: Admitting Diagnosis Discharge Date 11/03/23 Admitting Diagnosis Incomplete miscarriage DS: Discharge Diagnosis Discharge Diagnosis (1) Incomplete miscarriage: Code(s): O03.4 - Incomplete spontaneous without complication Status: Acute (2) Anemia: Code(s): D64.9 - Anemia, unspecified Status: Acute DS: Summary Hospital Course Reason for hospitalization: Vaginal bleeding Hospital Course: She was admitted to hospital for emergency dilation and curettage due to incomplete miscarriage. She had an uncomplicated D and C. On post op day 1 she had minimal vaginal bleeding. Her IV antibiotics were discontinued and she was started on oral Doxycycline. Her Post op hemoglobin was 7.5 and she had hypovolemic symptoms. She received two units PRBC the hemoglobin the next day was 8.5. The hypovolemic symptoms improved and the menstrual cramping resolved. She did have symptoms consistent with vertigo. She was given Meclizine this did help the symptoms. She was discharged to home on post op day 2. Status at Discharge Functional status at discharge: independent ambulation Time Spent with Patient Time attestation: Total time spent providing and/or coordinating discharge services: Exam Const: General: no acute distress Eyes: General: appearance normal, both eyes and all related structures Resp: Effort & Inspection: normal respiratory effort GI: Other: nontender Neuro: General: oriented to person, oriented to place and oriented to time Extrem: General: no calf tenderness DS: Data Data Completed and Pending Completed studies during hospitalization: Pending at discharge 11/01/23 16:33 Surgical [PTH] Routine Labs on day of discharge: Labs from last 24 hours 11/03/23 11/01/23 05:17 15:25 WBC 11.7 H RBC 2.96 L Hgb 8.5 L Hct 26.5 L MCV 89.5 MCH 28.7 MCHC 32.1 RDW 18.6 H Plt Count 205 MPV 9.2 Blood Type O Positive Antibody Screen Negative Doses of RhIg Required 0 Crossmatch See Detail Procedures/Treatments: Dilation and curettage Blood transfusion. Discharge Plan Discharge Attending physician on discharge: Naveen Simmons Consulting providers: Edilma Laws Discharging Clinician: Naveen Simmons Anticipated Discharge Date/Time: 11/03/23 15:00 Patient Disposition: Home, Self-Care Activity: may shower, no straining, no driving and pelvic rest Diet: regular Patient Instructions: Antibiotic Form, Doxycycline (By mouth) Stand Alone Forms: General Discharge Information Follow-up/Referrals: Naveen Simmons MD [Physician] - 1 Week (Call for appointment) Discharge Medications: New doxycycline hyclate 100 mg Tablet 100 mg PO Q12HR Qty: 12 0RF docusate sodium 100 mg Capsule 100 mg PO Q12HR Qty: 60 0RF ferrous sulfate 325 mg (65 mg iron) Tablet,Delayed Release (Dr/Ec) 325 mg PO BID Qty: 60 0RF ibuprofen 600 mg Tablet 600 mg PO Q6H PRN (Reason: Cramping) Qty: 30 0RF Continued metoprolol succinate 25 mg tablet extended release 24 hr 25 mg PO DAILY hydroxychloroquine 200 mg tablet 200 mg PO DAILY Discontinued misoprostol [Cytotec] 200 mcg tablet 200 mcg vaginal .COMPLEX Qty: 3 0RF Rx Instructions: Insert 600mcg (3 tablets) intravaginal hydrocodone-acetaminophen 5-325 mg tablet 1 tablet PO Q4H PRN (Reason: pain) Qty: 7 0RF ondansetron 4 mg tablet,disintegrating 4 mg PO Q6H PRN (Reason: nausea and vomiting) Qty: 4 0RF Date of admission: 11/01/23 17:05 Primary Care Provider: AaronJayla Admitting Provider: Naveen Simmons Attending physician on admission: Naveen Simmons Condition: Stable
[2023-11-03] MEDS: INFLUENZA TRIVALENT VACCINE 45 MCG/0.5 ML SYRINGE IM (14:14)
== END 2023-11-03 15:45 | disposition home or self-care (01) ==
LOC: ANHED 15:28 → ANHSURGERY 15:36 → ANH3MED 18:03
PROVIDERS: Admitting Provider Obstetrics & Gynecology; Emergency Provider Student in an Organized Health Care Education/Training Program; PCP Family Medicine; Referring Provider Obstetrics & Gynecology; Visit Provider Obstetrics & Gynecology
PROC: (CPT 59812; principal; 2023-11-01 16:00)
DX: O03.4 Incomplete spontaneous abortion without complication (principal); D64.9 Anemia, unspecified; Z23 Encounter for immunization
CPT/HCPCS: 59812; 36415; 36430; 80053; 85025; 85027; 85461; 85610; 85730; 86850; 86900; 86901; 86920; 88305; 90471; 90656; 96361; 96374; 96375; 99285; A9270; G0008; G0378; J0690; J1200; J1756; J2250; J2405; J3010; J7050; J7120; P9016

== ENCOUNTER 2024-04-04 10:23 | Outpatient (CLI) | payer BC, SELFPAY ==
--- OUTSIDE RECORDS SUMMARY | 2024-04-04 11:17 | XMS_ITS | Clinical Summary ---
Author Organization [facility] - [address]22 [address] [facility] [address] [place] [address] Phone Care Team Providers Care Kier Operator Name Role Phone Unavailable Primary Care Provider Unavailabl e Social History Tobacco Use Types Packs/Day Years Used Date Smoking Tobacco: Never Assessed Comments Unknown Sex and Gender Information Value Date Recorded Sex Assigned at Not on file Legal Sex Female 11:15 AM CDT Gender Identity Not on file Sexual Orientation Not on file Plan of Treatment Health Maintenance Due Date Last Done Comments DTAP/TDAP/TD VACCINES (1 - Tdap) 2001 HEPATITIS B VACCINES (1 of 3 - 19+ 3-dose series) 2001 CERVICAL CANCER SCREENING 2012 BREAST CANCER SCREENING 2022 INFLUENZA VACCINE (#1) 2023 HPV VACCINES Aged Out No longer eligi ble based on patient's age to complete this topic PNEUMOCOCCAL VACCINE 0-64 YEARS Aged Out No longer eligible based on patient's age to complete this topic Insurance [facility] PLAN MEDICAID
--- OUTSIDE RECORDS SUMMARY | 2024-04-04 11:17 | XMS_ITS | Encounter Summary ---
Author Organization [facility] Address [facility] [place] [address] Care Team Providers Care Chemical Operations Specialist Name Role Phone Jayla Walker DO Primary Care Provider Encounter Details Date Type Department Care Team (Late st Contact Info) Description 11/26/2022 [employer] [facility] Provider Action Needed Social History Tobacco Use Types Packs/Day Years Used Date Smoking Tobacco: Never Smokeless Tobacco: Never Alcohol Use Standard Drinks/Week Comments Yes 0 (1 standard drink = 0.6 oz pur e alcohol) OCCAS PHQ-2 Answer Date Recorded PHQ-2 Score - If the patient scores above 3, please move on to questions 3-9 0 05/04/2021 Comments No Sex and Gender Information Value Date Recorded Sex Assigned at Not on file Legal Sex Female 8:27 PM CDT Gender Identity Not on file Sexual Orientation Not on file documented as of this encounter Plan of Treatment Not on file documented as of this encounter Visit Diagnoses Not on filedocumented in this encounter Additional Health Concerns Assessment Noted Time PHQ-9 Depression Total Score: 0 05/05/19 22 3:09 PM CDT documented as of this encounter Care Teams Chemical Operations Specialist Relationship Specialty Start Date End Date Jayla Walker DO [address] [place] [address] PCP - General 05/24/16 documented as of this encounter
--- OUTSIDE RECORDS SUMMARY | 2024-04-04 11:17 | XMS_ITS | Clinical Summary ---
Author Organization [facility] Address [address] [place] [address] Care Team Providers Care Fur Mixer Operator Name Role Phone Tony Walker DO Primary Care Provider [phone] Allergies No known active allergies Medications albuterol sulfate HFA (PROAIR HFA) 108 (90 Base) MCG/ACT inhalerIndicatio ns:COVID-19 Inhale 2 puffs into the lungs every 6 (six) hours as needed for Wheezing. 18 g 2 0 Active Additional Information Patient not taking.Reported on 11/08/2023 clindamycin-gustabo oyl peroxide (BENZACLIN) gelIndications:A cne vulgaris Apply topically 2 (two) times daily. 50 g 1 1 Active Sulfacetamide Sodium, Acne, 10 % Lotion APPLY TOPICALLY TO FACE EVERY DAY IN THE MORNING 1 Active tretinoin 0.1 % cream APPLY TO FACE ONCE DAILY IN THE EVENING. APPLY MOISTURIZER BEFORE OR AFTER 1 Active hydroxychloroqui ne 200 MG tablet Take 1 tablet (200 mg total) by mouth 2 (two) times daily. 1 Active Multiple Vitamin (MULTIVITAMIN ADULT OR) Take 1 tablet by mouth daily. Active amitriptyline (ELAVIL) 50 MG tabletIndication s:Menstrual migraine without status migrainosus, not intractable Take 1 tablet (50 mg total) by mouth nightly at bedtime. 90 tablet 3 4 Active ferrous sulfate EC 325 (65 Fe) MG tablet Take 1 tablet (325 mg total) by mouth 2 (two) times daily. 4 Active doxycycline hyclate (VIBRA-TABS) 100 MG tablet Take 1 tablet (100 mg total) by mouth every 12 (twelve) hours. 4 Active desvenlafaxine ER (PRISTIQ) 50 MG 24 hr tabletIndication s:Adjustment disorder with disturbance of emotion Take 1 tablet (50 mg total) by mouth daily. 30 tablet 1 4 Active metoprolol succinate ER (TOPROL-XL) 25 MG 24 hr tabletIndication s:Palpitations TAKE ONE-HALF (1/2) TABLET DAILY 45 tablet 2 4 Active Active Problems Problem Noted Date Diagnosed Date Menstrual migraine without s tatus migrainosus, not intractable 03/02/2022 Rheumatoid arthritis involvi ng multiple sites with positive rheumatoid factor ([facility]) 05/04/2021 Enlarged thyroid 11/12/2015 Allergic rhinitis 05/17/2013 Dysuria 05/17/2013 Eczema 02/01/2013 Encounters Date Type Department Care Team Description 04/02/2024 Telephone [facility] Family Medicine - [place] [address] [place] [address] Tony Walker DO Fatigue (Patient and both children tested positive Covid) 02/13/2024 Scan [facility] HE[facility] INFO SRVCS Scanned, Doc Med Group from Last 3 Months Immunizations Name Administration Dates Next Due Dtp 10/17/1987, 7,07/17/1985,1983,1982 Fluzone 6 Months+ Quad (0.5 mL Prefilled Syringe) 12/01/2020,11/16/2019,12/07/2018 Hepatitis A (Generic) 04/30/2002 Hepatitis B (Generic: Adult) 03/13/1998 Hepatitis B Pediatric 09/21/1999,09/20/1996 Influenza (Generic) 02/01/2013 Influenza Adult (Generic) 11/30/2022,,12/07/2018,2017,12/15/2017,12/02/2016,12/07/2013 MMR 08/07/1991,07/10/1985 Opv 10/17/1987, 7,07/17/1985,1983,1982 PFIZER COVID-19 (ORIGINAL FORMULATION, PURPLE CAP) mRNA, LNP-S, PF, 30 MCG/0.3 ML DOSE 02/10/2021,05/03/2020,04/12/2020 Td, Adsorbed, Preservative F ree, Adult Use, Lf Unspecified 03/13/1998 Tdap (Generic) 12/02/2016,2014 Family History Medical History Relation Comments None Father Breast Cancer Maternal Aunt Hypertension Mother Breast Cancer Other cousin Relation Status Comments Father Alive Maternal Aunt Alive Mother Alive Other Social History Tobacco Use Types Packs/Day Years Used Date Smoking Tobacco: Never Passive Smoke Exposure: Never Smokeless Tobacco: Never Tobacco Cessation:Counseling Given: No Alcohol Use Standard Drinks/Week Comments Yes 0 (1 standard drink = 0.6 oz pur e alcohol) OCCAS PHQ-2 Answer Date Recorded Patient Health Questionnaire-2 Score 0 08/18/2023 Comments No Sex and Gender Information Value Date Recorded Sex Assigned at Not on file Legal Sex Female 8:27 PM CDT Gender Identity Not on file Sexual Orientation Not on file Last Filed Vital Signs Vital Sign Reading Time Taken Comments Blood Pressure 138/86 11/08/2023 1:24 PM CDT Pulse 80 11/08/2023 12:50 PM CDT Temperature 37.4 C (99.3 F) 11/08/2023 12:50 PM CDT Respiratory Rate 18 11/08/2023 12:5 0 PM CDT Oxygen Saturation 100% 11/08/2023 12: 50 PM CDT Inhaled Oxygen Concentration - - Weight 102.2 kg (225 lb 6.4 oz) 024 12:50 PM CDT Height 167.6 cm (5' 6 ) 08/18/2023 10:2 8 AM CDT Body Mass Index 36.38 08/18/2023 10:28 AM CDT Plan of Treatment Health Maintenance Due Date Last Done Comments Cervical Cancer Screening Pap with HPV Testing (Age 30 to 64) Every 5 Years 2012 COVID-19 Vaccine ( season) 2023 02/10/2021, 05/03/2020, 04/12/2020 Influenza Adult (#1) 2023 11/30/2022, 12/08/2021, 12/01/2020, Additional history exists Cervical Cancer Screening Pap Smear (Age 30 to 64) Every 3 Years 02/11/2024 02/10/2021 Cervical Cancer Screening with HPV 02/11/2024 PHQ-2 (Physician Jackson) 02/22/2024 08/18/2023 Annual Physical 08/17/2024 08/18/2023, 02/21, 05/04/2021, Additional history exists Mammogram Screening 07/05/2025 07/06/2023, 07/09/2022, 06/12/2022 DTaP, Tdap and Td Vaccines (4 - Td or Tdap) 12/02/2026 12/02/2016, 2014, 03/13/1998, Additional history exists Hepatitis B Vaccines Completed 09/21/1999, 03/13/1998, 09/20/1996 Hepatitis C Completed 03/08/2022, 10/23, 11/12/2020 HPV Vaccines Aged Out No longer eligi ble based on patient's age to complete this topic Meningococcal B Vaccine Aged Out No l onger eligible based on patient's age to complete this topic Meningococcal Vaccine Aged Out No merry radha eligible based on patient's age to complete this topic Pneumococcal Vaccine: Pediatrics (0 to 5 Years) and At-Risk Patients (6 to 64 Years) Aged Out No longer eligible based on patient's age to complete this topic RSV Immunizations Under 20 Months Aged Out No longer eligible based on patient's age to complete this topic Medical Devices Implanted Type Area Chemical Dependency Nurse Device Identifier Shelf Expiration Date Model / Serial / Lot Fuseforce Nitinol Staple Kit Implanted:Qty: 1 on 02/17/2023 by Viktor Aaron DPM at [facility] Right: Foot [id number] 12/22/2026 [id number] / / [id number] Description:1ST TOE Procedures Procedure Name Priority Date/Time Associated Diagnosis Comments MG SCREENING W MÓNICA PRAKASH DIGI Routine 07/06/2023 3:15 PM CDT Visit for screening mammogram HEPATITIS C ANTIBODY Routine 03/08/2022 8:40 AM LAMP DECORATOR Annual physical exam Need for hepatitis C screening test OUTSIDE CYTOPATH CERV/VAG INTERPRET (PAP) (SCAN ORDER) Routine 02/10/2021 12:00 AM LAMP DECORATOR from Last 3 Months or Most Recently Relevant to Health Maintenance Results * MG SCREENING W MÓNICA PRAKASH DIGI (07/06/2023 3:15 PM CDT) Anatomical Region Laterality Modality Breast Bilateral Mammography 07/06/2023 4:24 PM CDT Impressions 07/06/2023 4:30 PM CDT ===== IMPRESSION: ===== 1. Stable mammographic appearance with no new findings to suggest malignancy in either breast. Assessment: ACR BI-RADS 2 - BENIGN FINDING(S) Recommendation: 1:Routine Screening Bilateral Comments: Ordered By: TONY WALKER Interpreted By: Sheridan Phoenix, 07/06/2023 4:24 PM Narrative 07/06/2023 4:30 PM CDT EXAMINATION: Digital bilateral screening mammogram with 3-D tomosynthesis EXAM DATE/TIME: 07/06/2023 3:03 PM REASON FOR EXAM: screen Maternal aunt with breast carcinoma age 35. COMPARISON: 06/12/2022. Technique: Digital screening mammography of both breasts was performed in addition to 3-D Tomosynthesis technique. This study was read with the assistance of a computer-aided detection system. Tissue density: There are scattered areas of fibroglandular density. Findings: There is no new focal asymmetry, dominant mass lesion, area of skin thickening, or cluster of suspicious appearing calcifications in either breast to suggest malignancy. us Tony Walker DO MAMMO Final Result * HEPATITIS C ANTIBODY (03/08/2022 8:40 AM LAMP DECORATOR) HEPATITIS C AB NON-REACTI VE NON-REACTI VE 03/08/2022 10:16 AM LAMP DECORATOR [facility] 03/08/2022 8:40 AM LAMP DECORATOR Tony Walker DO LABORATORY Final Result [facility] [address] [facility] [place] [address], * PAP SMEAR (02/10/2021 12:00 AM LAMP DECORATOR) 02/10/2021 us Documents Scanned SCANNING Final Result Performing Organization Address City/[facility]/ZIP Co de Phone Number [facility]BASE from Last 3 Months or Most Recently Relevant to Health Maintenance Insurance [facility] Care Teams Fur Mixer Operator Relationship Specialty Start Date End Date Tony Walker DO [address] [place] [address] PCP - General 05/24/16
--- OUTSIDE RECORDS SUMMARY | 2024-04-04 11:17 | XMS_ITS | Encounter Summary ---
Author Organization [facility] - [facility] Address [facility] [place] [address] Care Team Providers Care Brief Writer Name Role Phone Jayla Walker DO Primary Care Provider [phone] Encounter Details Date Type Department Care Team (Late st Contact Info) Description 04/28/2020 [employer] [facility] Patient Accounts [address] [place], [place] [id number] [facility] Provider Financial Assistance application Social History Tobacco Use Types Packs/Day Years Used Date Smoking Tobacco: Never Smokeless Tobacco: Never Alcohol Use Standard Drinks/Week Comments Yes 0 (1 standard drink = 0.6 oz pur e alcohol) OCCAS Comments No Sex and Gender Information Value Date Recorded Sex Assigned at Not on file Legal Sex Female 8:27 PM CDT Gender Identity Not on file Sexual Orientation Not on file COVID-19 Exposure Response Date Recorded In the last month, have you been in contact with someone who was confirmed or suspected to have Coronavirus / COVID-19? No / Unsure 04/12/2020 8:42 AM HEEL PRICKER documented as of this encounter Plan of Treatment Not on file documented as of this encounter Visit Diagnoses Not on filedocumented in this encounter Additional Health Concerns Infection Onset Date Last Indicated Resolved Time COVID-19 Rule Out 03/06/2021 03/06/2021 03/06/2021 11:18 AM HEEL PRICKER documented as of this encounter Care Teams Brief Writer Relationship Specialty Start Date End Date Jayla Walker DO [address] [place] [address] PCP - General 05/24/16 documented as of this encounter
--- OUTSIDE RECORDS SUMMARY | 2024-04-04 11:17 | XMS_ITS | Encounter Summary ---
Author Organization [facility] Address [facility] [place] [address] Care Team Providers Care Blunger Machine Operator Name Role Phone Jayla Walker DO Primary Care Provider [phone] Encounter Details Date Type Department Care Team (Late st Contact Info) Description 01/09/2023 [facility] Message Enc [facility] Medical Group Family Medicine - [place] [address] [place] [address] Jayla Walker DO [address] [place] [address] HCRISTY Social History Tobacco Use Types Packs/Day Years [...] on file documented as of this encounter Progress Notes * Karolina Pérez MA - 01/10/2023 8:55 AM CST Patient notified that script have been sent out for both kids and to follow up in office if no improvement. Patient verbalized understanding and thanked us. LOPER SUPPORT ENGINEER * Karolina Pérez MA - 01/10/2023 8:35 AM CST Left message for patient to call office. LOPER SUPPORT ENGINEER documented in this encounter Plan of Treatment Not on file documented as of this encounter Visit Diagnoses Not on filedocumented in this encounter Additional Health Concerns Assessment Noted Time PHQ-9 Depression Total Score: 0 05/05/19 22 3:09 PM CDT documented as of this encounter Care Teams Blunger Machine Operator Relationship Specialty Start Date End Date Jayla Walker DO [address] [place] [address] PCP - General 05/24/16 documented as of this encounter
== END 2024-04-04 10:24 | disposition home or self-care (01) ==
LOC: ANHLAB 10:24
PROVIDERS: PCP Obstetrics & Gynecology; Visit Provider Obstetrics & Gynecology
DX: N92.0 Excessive and frequent menstruation with regular cycle (principal)
CPT/HCPCS: 36415; 84443

== ENCOUNTER 2024-05-11 12:09 | Outpatient (CLI) | payer BC, SELFPAY ==
--- NOTE | ~2024-05-11 | US_ITS ---
US thyroid INDICATION: Nontoxic goiter TECHNIQUE: Real-time sonographic images of the thyroid gland were obtained. COMPARISON: No prior studies for comparison. FINDINGS: The right thyroid lobe measures 6 x 2 x 1.7 cm. The left thyroid lobe measures 5.4 x 1.7 x 2.1 cm. Thyroid echotexture is somewhat heterogeneous. In the left thyroid gland there is a hypoecho ic solid 9 x 9 x 6 mm mass which is wider than tall, smoothly marginated, no internal echogenic foci, TR 4 Normal vascular flow is present. IMPRESSION: 1. Left thyroid mass measuring 9 mm, TR 4, which does not meet sonographic criteria for biopsy. Cons ider follow-up ultrasound in 12 months. Reviewed, dictated and finalized at location B. IMPRESSION: 1. Left thyroid mass measuring 9 mm, TR 4, which does not meet sonographic cri teria for biopsy. Consider follow-up ultrasound in 12 months.
--- OUTSIDE RECORDS SUMMARY | 2024-05-11 12:58 | XMS_ITS | Encounter Summary ---
Author Organization [facility] Address [facility] [place] [address] Care Team Providers Care Silica Dry Press Helper Name Role Phone Jayla Walker Primary Care Provider [phone] Encounter Details Date Type Department Care Team (Late Contact Info) Description 11/26/2022 [facility] Provider Action Needed Social History Tobacco Use [...] as of this encounter Plan of Treatment Upcoming Encounters Date Type Department Care Team (Late Contact Info) Description 07/06/2024 8:20 AM CDT Appointment [facility] [address] [place] [address] Naveen Simmons MD [facility] [address] [place] [address] documented as of this encounter Visit Diagnoses Not on filedocumented in this encounter Additional Health Concerns Assessment Noted Time PHQ-9 Depression Total Score: 0 05/05/19 22 3:09 PM CDT documented as of this encounter Care Teams Silica Dry Press Helper Relationship Specialty Start Date End Date Jayla Walker DO [address] [place] [address] PCP - General 05/24/16 documented as of this encounter
--- OUTSIDE RECORDS SUMMARY | 2024-05-11 12:58 | XMS_ITS | Clinical Summary ---
Author Organization [employer] Grisel sullivan [place] [facility] [address] [place] [address] Phone Care Team Providers Care Panel Cutter Name Role Phone Unavailable Primary Care Provider [...] of 3 - 19+ 3-dose series) 2001 PAP SMEAR 2012 BREAST CANCER SCREENING 2022 INFLUENZA VACCINE (#1) 2023 HPV VACCINES Aged Out No longer eligi ble based on patient's age to complete this topic PNEUMOCOCCAL VACCINE 0-49 YEARS Aged Out No longer eligible based on patient's age to complete this topic Insurance [employer] MED[employer]
--- OUTSIDE RECORDS SUMMARY | 2024-05-11 12:58 | XMS_ITS | Encounter Summary ---
Author Organization [facility] - [facility] Address [facility] [place] [address] Care Team Providers Care Inflated Ball Molder Name Role Phone NathanielJayla cortez Primary Care Provider [phone] Encounter Details Date Type Department Care Team (Late Contact Info) Description 04/28/2020 [facility] Patient Accounts [address] [place], [place] [id number] [facility] Provider Financial Assistance application Social History Tobacco [...] COVID-19? No / Unsure 04/12/2020 8:42 AM BILLET STRAIGHTENER documented as of this encounter Plan of Treatment Upcoming Encounters Date Type Department Care Team (Late Contact Info) Description 07/06/2024 8:20 AM CDT Appointment [facility] [address] [place] [address] Naveen Simmons MD [facility] [address] [place] [address] documented as of this encounter Visit Diagnoses Not on filedocumented in this encounter Additional Health Concerns Infection Onset Date Last Indicated Resolved Time COVID-19 Rule Out 03/06/2021 03/06/2021 03/06/2021 11:18 AM BILLET STRAIGHTENER documented as of this encounter Care Teams Inflated Ball Molder Relationship Specialty Start Date End Date Jayla Walker DO [address] [place] [address] PCP - General 05/24/16 documented as of this encounter
--- OUTSIDE RECORDS SUMMARY | 2024-05-11 12:58 | XMS_ITS | Encounter Summary ---
Author Organization [facility] Address [facility] [place] [address] Care Team Providers Care Glue Sprayer Name Role Phone Jayla Walker DO Primary Care Provider [phone] Encounter Details Date Type Department Care Team (Late st Contact Info) Description 01/09/2023 [facility] Family Medicine - [place] [address] [place] [address] Jayla Walker DO [address] [place] [address] CHRISTY Social History Tobacco Use Types Packs/Day Years [...] improvement. Patient verbalized understanding and thanked us. CHOOL DIRECTOR * Karolina Pérez MA - 01/10/2023 8:35 AM CST Left message for patient to call office. CHOOL DIRECTOR documented in this encounter Plan of Treatment Upcoming Encounters Date Type Department Care Team (Late st Contact Info) Description 07/06/2024 8:20 AM CDT Appointment [facility] [address] [place] [address] Naveen Simmons MD [facility] [address] [place] [address] documented as of this encounter Visit Diagnoses Not on filedocumented in this encounter Additional Health Concerns Assessment Noted Time PHQ-9 Depression Total Score: 0 05/05/19 22 3:09 PM CDT documented as of this encounter Care Teams Glue Sprayer Relationship Specialty Start Date End Date Jayla Walker DO [address] [place] [address] PCP - General 05/24/16 documented as of this encounter
--- OUTSIDE RECORDS SUMMARY | 2024-05-11 12:59 | XMS_ITS | Clinical Summary ---
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 ([facility]) 05/04/2021 Enlarged thyroid 11/12/2015 Allergic rhinitis 05/17/2013 Dysuria 05/17/2013 Eczema 02/01/2013 Encounters Date Type Department Care Team Description 04/02/2024 Telephone [facility] Family Medicine - [place] [address] [place] [address] Tony Walker DO Fatigue (Patient [...] 08/18/2023 10:28 AM CDT Plan of Treatment Upcoming Encounters Date Type Department Care Team (Late st Contact Info) Description 07/06/2024 8:20 AM CDT Appointment [facility] [address] [place] [address] Naveen Simmons MD [facility] [address] [place] [address] Health Maintenance Due Date Last Done Comments Cervical Cancer Screening Pap with HPV Testing (Age 30 to 64) Every 5 Years 2012 COVID-19 Vaccine ( - 2023- season) 2023 02/10/2021, 05/03/2020, 04/12/2020 Influenza Adult (#1) 2023 11/30/2022, 12/08/2021, 12/01/2020, Additional history exists Cervical Cancer Screening Pap Smear (Age 30 to 64) Every 3 Years 02/11/2024 02/10/2021 Cervical Cancer Screening with HPV 02/11/2024 PHQ-2 (Physician Hixson) 02/22/2024 08/18/2023 Annual Physical 08/17/2024 08/18/2023, 02/21, [...] this topic Medical Devices Implanted Type Area Pick Pulling Machine Operator Device Identifier Shelf Expiration Date Model / Serial / Lot Fuseforce Nitinol Staple Kit Implanted:Qty: 1 on 02/17/2023 by Viktor Aaron DPM at [facility] Right: Foot [id number] 12/22/2026 [id number] / / [id number] Description:1ST TOE Procedures Procedure Name Priority Date/Time Associated Diagnosis Comments MG SCREENING W MÓNICA PRAKASH DIGI Routine 07/06/2023 3:15 PM CDT Visit for screening mammogram HEPATITIS C ANTIBODY Routine 03/08/2022 8:40 AM SECURITY CONTROL ROOM OFFICER Annual physical exam Need for hepatitis C screening test OUTSIDE CYTOPATH CERV/VAG INTERPRET (PAP) (SCAN ORDER) Routine 02/10/2021 12:00 AM SECURITY CONTROL ROOM OFFICER from Last 3 Months or Most Recently [...] calcifications in either breast to suggest malignancy. Tony Walker DO MAMMO Final Result * HEPATITIS C ANTIBODY (03/08/2022 8:40 AM SECURITY CONTROL ROOM OFFICER) HEPATITIS C AB NON-REACTI VE NON-REACTI VE 03/08/2022 10:16 AM SECURITY CONTROL ROOM OFFICER [facility] 03/08/2022 8:40 AM SECURITY CONTROL ROOM OFFICER Tony Walker DO LABORATORY Final Result Performing Organization Address City/[facility] Co de Phone Number [facility] [address] [place] [address], * PAP SMEAR (02/10/2021 12:00 AM SECURITY CONTROL ROOM OFFICER) 02/10/2021 us Documents Scanned SCANNING Final Result Performing Organization Address City/[facility]/ZIP Co de Phone Number [facility] ON[facility] from Last 3 Months or Most Recently Relevant to Health Maintenance Insurance [facility] Care Teams Joggle Press Operator Relationship Specialty Start Date End Date Tony Walker DO [address] '[place] [address] PCP - General 05/24/16
== END 2024-05-11 12:10 | disposition home or self-care (01) ==
PROVIDERS: PCP Family Medicine; Visit Provider Obstetrics & Gynecology
DX: E04.9 Nontoxic goiter, unspecified (principal)
CPT/HCPCS: 76536